=== PATIENT | female | born 1940 | race Two or more races ===

== ENCOUNTER 2024-01-25 09:40 | Emergency (ER) | payer OTHER ==
[~2024-01-25] VITALS: Ht 157.5 cm; Wt 67.6 kg
[2024-01-25] MEDS ORDERED: KETOROLAC TROMETHAMINE 60 MG VIAL IM ONE (10:45)
== END 2024-01-25 12:51 | disposition home or self-care (01) ==
LOC: ER 09:42
DX: M79.641 Pain in right hand (principal)
CPT/HCPCS: 73130; 96372; 99283; J1885